=== PATIENT | female | born 1995 | race Caucasian/White ===

== ENCOUNTER 2018-05-27 08:45 | Outpatient (CLI) | payer BC | END 2018-05-27 08:46 | disposition home or self-care (01) | LOC: LAB.WCP 08:45 | PROVIDERS: ATTEND Nurse Practitioner | DX: Z92.29 Personal history of other drug therapy (principal); Z78.9 Other specified health status; Z86.19 Personal history of other infectious and parasitic diseases | CPT/HCPCS: 36415; 86317; 86735; 86762; 86765; 86787 ==